=== PATIENT | male | born 1955 | race Caucasian/White ===

== ENCOUNTER → 2016-06-24 | Outpatient (CLI) | payer OTHER ==
[~2016-06-24] MED LIST: COZAAR50 MG PO; NEURONTIN 100100 MG PO; NEXIUM40 MG PO; PROTONIX40 MG PO; SYNTHROID75 MCG PO; TYLENOL WITH C1 EACH PO; VITAMIN D 11000 UNIT PO; ZANTAC 150 MG150 MG PO
== END ==
LOC: OPSV 10:29
DX: E61.1 Iron deficiency (principal); D50.9 Iron deficiency anemia, unspecified; R71.8 Other abnormality of red blood cells; D50.0 Iron deficiency anemia secondary to blood loss (chronic); K51.919 Ulcerative colitis, unspecified with unspecified complications; K31.84 Gastroparesis; Z98.84 Bariatric surgery status
CPT/HCPCS: 96365; J1756; J7030

== ENCOUNTER → 2016-07-01 | Outpatient (CLI) | payer OTHER | LOC: OPSV 12:00 | DX: E61.1 Iron deficiency (principal); D50.9 Iron deficiency anemia, unspecified; R71.8 Other abnormality of red blood cells; D50.0 Iron deficiency anemia secondary to blood loss (chronic); Z98.84 Bariatric surgery status; K31.84 Gastroparesis; K51.919 Ulcerative colitis, unspecified with unspecified complications; Z91.040 Latex allergy status; Z91.013 Allergy to seafood; Z91.041 Radiographic dye allergy status; Z91.018 Allergy to other foods; Z88.8 Allergy status to other drugs, medicaments and biological substances | CPT/HCPCS: 96365; J1756; J7030 ==

== ENCOUNTER → 2016-07-08 | Outpatient (CLI) | payer OTHER ==
[~2016-07-08] VITALS: Ht 180.3 cm; Wt 90.7 kg
== END ==
LOC: OPSV 11:59
DX: E61.1 Iron deficiency (principal); K31.84 Gastroparesis; K51.919 Ulcerative colitis, unspecified with unspecified complications; R71.8 Other abnormality of red blood cells; Z98.84 Bariatric surgery status
CPT/HCPCS: 96365; J1756; J7030

== ENCOUNTER → 2016-07-26 | Outpatient (CLI) | payer OTHER | LOC: KOH-I 14:42 | DX: M25.50 Pain in unspecified joint (principal); R21 Rash and other nonspecific skin eruption; M54.9 Dorsalgia, unspecified | CPT/HCPCS: 72070; 72110; 73502 ==

== ENCOUNTER 2020-11-09 14:37 | Emergency (ER) | payer BC ==
[2020-11-09 15:58] LABS: HEMOGLOBIN 11.9 gm/dl (14.0-17.5); RED BLOOD COUNT 4.35 M/UL (4.20-5.50); WHITE BLOOD COUNT 5.6 K/UL (4.5-11.0)
== END 2020-11-09 17:19 | disposition home or self-care (01) ==
LOC: ER1 14:37
PROVIDERS: Preventive Medicine Occupational Medicine
DX: E86.0 Dehydration (principal); I10 Essential (primary) hypertension; R74.8 Abnormal levels of other serum enzymes
CPT/HCPCS: 80053; 81001; 83690; 85025; 85652; 86140; 87086; 99283

== ENCOUNTER 2021-05-25 17:19 | Emergency (ER) | payer BC ==
[2021-05-25 20:04] LABS: HEMOGLOBIN 9.8 gm/dl (14.0-17.5); RED BLOOD COUNT 4.23 M/UL (4.20-5.50); WHITE BLOOD COUNT 10.5 K/UL (4.5-11.0)
[2021-05-25 20:28] LABS: BUN/CREATININE RATIO 12 (0-10)
[2021-05-26] MEDS ORDERED: PREDNISONE20 MG PO (01:00)
[2021-05-26] MEDS ORDERED: ZOFRAN ODT 4 MG4 MG PO (01:00)
== END 2021-05-26 01:39 | disposition home or self-care (01) ==
LOC: ER1 17:19
PROVIDERS: Physician Assistant
DX: U07.1 COVID-19 (principal); R19.7 Diarrhea, unspecified; R10.9 Unspecified abdominal pain; N17.9 Acute kidney failure, unspecified; E86.0 Dehydration; I95.9 Hypotension, unspecified; K50.90 Crohn's disease, unspecified, without complications
CPT/HCPCS: 80053; 81001; 82550; 82553; 83605; 83690; 83874; 84484; 85025; 87040; 87449; 93005; 96365; 96375; 96376; 99283; J2405; J2930; J7030; U0002

== ENCOUNTER → 2021-06-22 | Outpatient (CLI) | payer BC ==
[~2021-06-22] MED LIST changes: +PREDNISONE20 MG PO; +ZOFRAN ODT 4 MG4 MG PO
== END ==
LOC: OPSV 09:18
DX: D64.9 Anemia, unspecified (principal); K50.911 Crohn's disease, unspecified, with rectal bleeding
CPT/HCPCS: 36430; 96375

== ENCOUNTER → 2021-06-27 | Outpatient (CLI) | payer BC ==
[~2021-06-27] VITALS: Ht 180.3 cm; Wt 90.7 kg
== END ==
LOC: OPSV 11:50
DX: Z53.9 Procedure and treatment not carried out, unspecified reason (principal)
CPT/HCPCS: 96365; J1756

== ENCOUNTER → 2021-07-03 | Outpatient (CLI) | payer BC | LOC: OPSV 12:00 | DX: D62 Acute posthemorrhagic anemia (principal) | CPT/HCPCS: 36430; J7050 ==

== ENCOUNTER → 2021-07-05 | Outpatient (CLI) | payer BC | LOC: OPSV 09:30 | DX: H53.8 Other visual disturbances (principal); H35.62 Retinal hemorrhage, left eye; D62 Acute posthemorrhagic anemia; R42 Dizziness and giddiness; K51.90 Ulcerative colitis, unspecified, without complications; K62.5 Hemorrhage of anus and rectum; K91.850 Pouchitis; Z90.49 Acquired absence of other specified parts of digestive tract; I10 Essential (primary) hypertension | CPT/HCPCS: 93880; 96365; J1756 ==

== ENCOUNTER → 2021-07-09 | Outpatient (CLI) | payer BC ==
[~2021-07-09] VITALS: Ht 180.3 cm; Wt 90.7 kg
== END ==
LOC: OPSV 11:45
DX: Z53.9 Procedure and treatment not carried out, unspecified reason (principal)
CPT/HCPCS: 96365; J1756

== ENCOUNTER → 2021-07-11 | Outpatient (CLI) | payer BC | LOC: OPSV 11:00 | DX: Z53.9 Procedure and treatment not carried out, unspecified reason (principal) | CPT/HCPCS: 96365; J1756 ==

== ENCOUNTER → 2021-07-13 | Outpatient (CLI) | payer BC ==
[~2021-07-13] VITALS: Ht 180.3 cm; Wt 90.7 kg
== END ==
LOC: OPSV 11:20
DX: D62 Acute posthemorrhagic anemia (principal)
CPT/HCPCS: 96365; J1756

== ENCOUNTER → 2021-09-12 | Outpatient (CLI) | payer BC | LOC: OPSV 12:58 | DX: D64.9 Anemia, unspecified (principal); K50.90 Crohn's disease, unspecified, without complications | CPT/HCPCS: 96365; J1439; J7030 ==

== ENCOUNTER → 2021-09-19 | Outpatient (CLI) | payer BC ==
[~2021-09-19] VITALS: Ht 180.3 cm; Wt 90.7 kg
== END ==
LOC: OPSV 12:11
DX: D64.9 Anemia, unspecified (principal); K50.90 Crohn's disease, unspecified, without complications; K62.5 Hemorrhage of anus and rectum
CPT/HCPCS: 96365; J1439; J7030

== ENCOUNTER → 2021-11-07 | Outpatient (CLI) | payer BC | LOC: RAD 09:36 | DX: R10.9 Unspecified abdominal pain (principal); N20.0 Calculus of kidney | CPT/HCPCS: 74018 ==

== ENCOUNTER 2021-12-13 14:59 | Inpatient (IN) | payer BC ==
[~2021-12-13] VITALS: Ht 180.3 cm; Wt 95.3 kg
[~2021-12-13 14:59] MED LIST changes: -NEURONTIN 100100 MG PO; +NEURONTIN800 MG PO; -VITAMIN D 11000 UNIT PO; +VITAMIN D325 MC6 PO
[2021-12-13 15:44] LABS: HEMOGLOBIN 13.7 gm/dl (14.0-17.5); RED BLOOD COUNT 4.6 M/UL (4.20-5.50); WHITE BLOOD COUNT 21.4 K/UL (4.5-11.0)
[2021-12-13 15:52] LABS: BORDETELLA PARAPERTUSSIS Not Detected (Not Detectd); BORDETELLA PERTUSSIS Not Detected (Not Detectd); CHLAMYDIA PNEUMONIAE Not Detected (Not Detectd); CORONAVIRUS HKU1 Not Detected (Not Detectd); CORONAVIRUS NL63 Not Detected (Not Detectd); CORONAVIRUS OC43 Not Detected (Not Detectd); CORONOAVIRUS 229E Not Detected (Not Detectd); HUMAN METAPNEUMOVIRUS Not Detected (Not Detectd); HUMAN RHINOVIRUS/ENTEROVIRUS Not Detected (Not Detectd); INFLUENZA A Not Detected (Not Detectd); INFLUENZA B Not Detected (Not Detectd); MYCOPLASMA PNEUMONIAE Not Detected (Not Detectd); PARAINFLUENZA VIRUS 1 Not Detected (Not Detectd); PARAINFLUENZA VIRUS 2 Not Detected (Not Detectd); PARAINFLUENZA VIRUS 3 Not Detected (Not Detectd); PARAINFLUENZA VIRUS 4 Not Detected (Not Detectd); RESPIRATORY SYNCYTIAL VIRUS Not Detected (Not Detectd)
[2021-12-13 17:01] LABS: SARS-CoV-2 NOT DETECTED (Not Detectd)
[2021-12-13] MEDS ORDERED: HYDROCODON-ACE1 EAC2 PO (18:31)
[2021-12-13] MEDS ORDERED: AMITRIPTYLINE H10 MG PO (18:31)
[2021-12-13] MEDS ORDERED: LIDOCAINE1 EAC1 TP (18:32)
[2021-12-13] MEDS ORDERED: DOCUSATE SODIU100 MG PO (18:32)
[2021-12-13] MEDS ORDERED: MULTIVITAMIN1 EACH PO (18:34)
[2021-12-13] MEDS ORDERED: VITAMIN C500 M4 PO (18:34)
[2021-12-14 03:09] LABS: HEMOGLOBIN 12.6 gm/dl (14.0-17.5); RED BLOOD COUNT 4.36 M/UL (4.20-5.50)
[2021-12-14 03:22] LABS: WHITE BLOOD COUNT 15.6 K/UL (4.5-11.0)
[2021-12-14 03:53] LABS: BUN/CREATININE RATIO 16 (0-10)
[2021-12-15 04:53] LABS: HEMOGLOBIN 13.2 gm/dl (14.0-17.5); RED BLOOD COUNT 4.44 M/UL (4.20-5.50)
[2021-12-15 05:00] LABS: BUN/CREATININE RATIO 12 (0-10)
[2021-12-15 05:25] LABS: WHITE BLOOD COUNT 8.6 K/UL (4.5-11.0)
[2021-12-15] MEDS ORDERED: LEVOFLOXACIN500 MG PO (08:45)
[2021-12-18 11:12] LABS: ORGANISM ID Not indicated. (.); SPECIMEN SOURCE Urine (.); STREPTOCOCCUS PNEUMONIAE AG Negative (Negative)
== END 2021-12-15 10:49 | disposition home or self-care (01) | DRG 871 ==
LOC: ER1 14:59 → CDU 17:23 → M/S 19:03
PROVIDERS: Physician Assistant; Preventive Medicine Occupational Medicine; ADMIT Internal Medicine
DX: A41.9 Sepsis, unspecified organism (principal); J18.9 Pneumonia, unspecified organism; K51.90 Ulcerative colitis, unspecified, without complications; N17.9 Acute kidney failure, unspecified; I12.9 Hypertensive chronic kidney disease with stage 1 through stage 4 chronic kidney disease, or unspecified chronic kidney disease; N18.30 Chronic kidney disease, stage 3 unspecified; N40.0 Benign prostatic hyperplasia without lower urinary tract symptoms; E03.9 Hypothyroidism, unspecified; N20.0 Calculus of kidney; K21.9 Gastro-esophageal reflux disease without esophagitis; Z87.442 Personal history of urinary calculi; Z90.49 Acquired absence of other specified parts of digestive tract; Z88.8 Allergy status to other drugs, medicaments and biological substances; Z98.890 Other specified postprocedural states; Z82.49 Family history of ischemic heart disease and other diseases of the circulatory system; Z87.440 Personal history of urinary (tract) infections
CPT/HCPCS: 36415; 71045; 80053; 80202; 81001; 82550; 82553; 83605; 83690; 83735; 84484; 85025; 85027; 85652; 86140; 87040; 87086; 87278; 87633; 87899; 93005; 96374; 96375; 96376; 99285; J0456; J0692; J0696; J1650; J2405; J3370; J7030; J7070